=== PATIENT | male | born 1945 | race Hispanic/Latino ===

== ENCOUNTER 2017-03-26 11:42 | Inpatient (IN) | payer MEDICARE, OTHER ==
[~2017-03-26] VITALS: Ht 157.5 cm; Wt 66.5 kg
[~2017-03-26 11:42] MED LIST: AMLO10TA2 PO; ASPI-1005 PO; ATOR40TA71 PO; IBUP-2070 PO; INSNOV SQ; LEVO75TA4 PO; METF10004 PO; METO25TA6 PO
[2017-03-26 12:08] LABS: BASOPHILS % (AUTO) 0.2 % (0.0-5.0); EOSINOPHILS % (AUTO) 0.3 % (0.0-8.0); HEMATOCRIT 36.5 % (42-54); LYMPHOCYTES % (AUTO) 14.9 % (21.0-51.0); MEAN CORPUSCULAR HEMOGLOBIN 31.6 pg (27.0-33.0); MEAN CORPUSCULAR HGB CONC 35.7 g/dL (32.0-36.0); MEAN CORPUSCULAR VOLUME 88.5 fL (79-99); MONOCYTES % (AUTO) 1.1 % (3.0-13.0); NEUTROPHILS % (AUTO) 83.5 % (40.0-77.0); PLATELET COUNT (AUTO) 300 K/uL (130-400); RED BLOOD CELL COUNT(AUTO) 4.13 MIL/uL (4.50-6.20); RED CELL DISTRIBUTION WIDTH 13.3 % (11.0-15.5); WHITE BLOOD COUNT (AUTO) 3.9 K/uL (4.8-10.8)
[2017-03-26] MEDS ORDERED: ACETAMINOPHEN 325 MG TAB ONE (12:08)
[2017-03-26 12:20] LABS: CARBON DIOXIDE 28 mmol/L (21-32); CHLORIDE 95 mmol/L (101-111); CREATININE 1.1 mg/dL (0.5-1.5); GLOMERULAR FILTR. RATE CALC 70 mL/min (>60); GLUCOSE,RANDOM 107 mg/dL (70-105); POTASSIUM 3.4 mmol/L (3.5-5.1); SODIUM SERUM 135 mmol/L (136-145); UREA NITROGEN, BLOOD 17 mg/dL (7-18)
[2017-03-26 12:30] LABS: INR 0.98 (0.85-1.15); PARTIAL THROMBOPLASTIN TIME 28.2 SEC (26.3-35.5); PROTHROMBIN TIME 10.3 SEC (9.6-11.6)
[2017-03-26 12:30] LABS: APPEARANCE,URINE Cloudy (CLEAR); BILIRUBIN,URINE Negative (NEGATIVE); COLOR,URINE Yellow (YELLOW); GLUCOSE, URINE (UA) Negative (NEGATIVE); KETONES,URINE Trace mg/dL (NEGATIVE); LEUKOCYTE ESTERASE ,URINE Moderate (NEGATIVE); NITRATE,URINE Positive (NEGATIVE); OCCULT BLOOD,URINE Trace (NEGATIVE); PH,URINE 6.5 (5.0-8.0); PROTEIN,URINE POS 1+ (NEGATIVE)
[2017-03-26] MEDS ORDERED: SODIUM CHLORIDE 0.9% 1000ML 2,000 ML IV ONE (12:30)
[2017-03-26 12:35] LABS: ALANINE AMINOTRANSFERASE 25 U/L (12-78); ALBUMIN 3.3 g/dL (3.5-5.0); ASPARTATE AMINOTRANSFERASE 19 U/L (10-37); BILIRUBIN,TOTAL 0.4 mg/dL (0.2-1.0); CREATINE KINASE MB 0.5 ng/mL (0.5-3.6); CREATINE KINASE, TOTAL 72 U/L (21-232); MYOGLOBIN 42 ng/mL (10-92); TOTAL PROTEIN, SERUM 7.9 g/dL (6.0-8.3); TROPONIN I < 0.04 ng/mL (0.00-0.06)
[2017-03-26 12:37] LABS: BACTERIA,URINE Many /HPF (None Seen); RBC,URINE 0-1 /HPF (0-1)
[2017-03-26] MEDS ORDERED: CEFTRIAXONE SODIUM 1 GM ONE (13:01)
[2017-03-26] MEDS ORDERED: SODIUM CHLORIDE 0.9% 1000ML 1,000 ML IV ONE (16:14)
[2017-03-26 18:00] VITALS: BP 91/56
[2017-03-26 19:25] VITALS: BP 118/61
[2017-03-26] MEDS ORDERED: METF-527 PO (20:14)
[2017-03-26] MEDS ORDERED: AMLO10TA2 PO (20:14)
[2017-03-26] MEDS ORDERED: FERR325T22 PO (20:14)
[2017-03-26] MEDS ORDERED: DIPH25TA20 PO (20:14)
[2017-03-26] MEDS ORDERED: INSU100C6 SQ ×3 (20:14)
[2017-03-26] MEDS ORDERED: CHOL100018 PO (20:14)
[2017-03-26] MEDS ORDERED: DEXT-199 PO (20:14)
[2017-03-26] MEDS ORDERED: METO50TA18 PO (20:14)
[2017-03-26] MEDS ORDERED: ASPI-555 PO (20:14)
[2017-03-26] MEDS ORDERED: LEVO88TA7 PO (20:14)
[2017-03-26] MEDS ORDERED: VENL75TA63 PO (20:14)
[2017-03-26] MEDS ORDERED: INSLAN SQ ×2 (20:14)
[2017-03-26] MEDS ORDERED: CETI10TA57 PO (20:14)
[2017-03-26] MEDS ORDERED: ONDANSETRON HCL 4 MG/2 ML VIAL IVP PRN (21:00)
[2017-03-26] MEDS ORDERED: SODIUM CHLORIDE 0.9% 1000ML 1,000 ML IV SCH (21:00)
[2017-03-26] MEDS: SODIUM CHLORIDE 0.9% 1000ML 1,000 ML IV SCH (21:59)
[2017-03-26] MEDS ORDERED: POTASSIUM CHLORIDE 20MEQ/100ML 100 ML IV PRN (22:00)
[2017-03-26] MEDS ORDERED: LIDOCAINE HCL-MPF 1% 2ML VIAL IVP PRN (22:00)
[2017-03-26] MEDS ORDERED: POTASSIUM CHLORIDE 10% ELIXIR 20 MEQ/15 ML UDCUP PO PRN (22:00)
[2017-03-26] MEDS ORDERED: HYDRALAZINE HCL 20 MG/ML VIAL IV PRN (22:00)
[2017-03-26] MEDS ORDERED: POTASSIUM CHLORIDE 20 MEQ ERTAB PO PRN (22:00)
[2017-03-26 23:39] VITALS: BP 147/79
[2017-03-27] VITALS (7 sets, daily range): BP systolic 104–161; BP diastolic 56–70
[2017-03-27] MEDS ORDERED: ACETAMINOPHEN EXTRA STRENGTH 500 MG TABLET ONE (02:29)
[2017-03-27] MEDS: ACETAMINOPHEN EXTRA STRENGTH 500 MG TABLET PO PRN ×2 (02:32→12:07)
[2017-03-27 05:05] LABS: BASOPHILS % (AUTO) 0.3 % (0.0-5.0); HEMATOCRIT 29.6 % (42-54); LYMPHOCYTES % (AUTO) 7.4 % (21.0-51.0); MEAN CORPUSCULAR VOLUME 88.6 fL (79-99); MONOCYTES % (AUTO) 6.3 % (3.0-13.0); PLATELET COUNT (AUTO) 276 K/uL (130-400); RED BLOOD CELL COUNT(AUTO) 3.34 MIL/uL (4.50-6.20); RED CELL DISTRIBUTION WIDTH 13.3 % (11.0-15.5); WHITE BLOOD COUNT (AUTO) 13.8 K/uL (4.8-10.8)
[2017-03-27 05:13] LABS: CREATININE 1.1 mg/dL (0.5-1.5); POTASSIUM 3.6 mmol/L (3.5-5.1)
[2017-03-27] MEDS: INSULIN LISPRO 100 UNIT/ML 3ML SQ SCH ×4 (06:28→21:00)
[2017-03-27] MEDS ORDERED: DEXTROSE 4 GM TAB.CHEW PO PRN (08:15)
[2017-03-27] MEDS: AMLODIPINE BESYLATE 5 MG TAB PO SCH ×2 (08:38→12:07)
[2017-03-27] MEDS: VENLAFAXINE HCL 75 MG TAB PO SCH (09:00)
[2017-03-27] MEDS: ASPIRIN 81 MG EC TAB PO SCH (09:04)
[2017-03-27] MEDS: CEFTRIAXONE SODIUM 1 GM IVP SCH (09:04)
[2017-03-27] MEDS: FERROUS SULFATE 325 MG TABLET.DR PO SCH ×2 (09:05→18:33)
[2017-03-27] MEDS: FAMOTIDINE 20MG TAB 20 MG TAB PO SCH (09:05)
[2017-03-27] MEDS: METOPROLOL TARTRATE 50 MG TAB PO SCH (09:05)
[2017-03-27] MEDS: INSULIN HUMULIN R 100 UNIT/ML 3ML SQ SCH ×3 (12:00→23:59)
[2017-03-27] MEDS: SODIUM CHLORIDE 0.9% 1000ML 1,000 ML IV SCH ×2 (12:43→23:58)
[2017-03-27] MEDS ORDERED: CEFTRIAXONE SODIUM 1 GM IVP SCH (13:00)
[2017-03-27] MEDS: INSULIN GLARGINE 100 UNITS/ML 10 ML VIAL SQ SCH (23:53)
[2017-03-28] MEDS: FERROUS SULFATE 325 MG TABLET.DR PO SCH ×4 (00:01→21:05)
[2017-03-28] MEDS: FAMOTIDINE 20MG TAB 20 MG TAB PO SCH ×3 (00:01→21:05)
[2017-03-28] MEDS: CEFTRIAXONE SODIUM 1 GM IVP SCH ×3 (00:02→21:05)
[2017-03-28] MEDS: METOPROLOL TARTRATE 50 MG TAB PO SCH ×3 (00:08→21:05)
[2017-03-28 03:39] VITALS: BP 119/62
[2017-03-28] MEDS: INSULIN GLARGINE 100 UNITS/ML 10 ML VIAL SQ SCH ×2 (06:22→20:58)
[2017-03-28] MEDS: INSULIN HUMULIN R 100 UNIT/ML 3ML SQ SCH ×4 (06:22→21:00)
[2017-03-28] MEDS: INSULIN LISPRO 100 UNIT/ML 3ML SQ SCH ×4 (06:22→20:59)
[2017-03-28 08:00] VITALS: BP 138/69
[2017-03-28] MEDS: ASPIRIN 81 MG EC TAB PO SCH (09:54)
[2017-03-28] MEDS: AMLODIPINE BESYLATE 5 MG TAB PO SCH (09:54)
[2017-03-28] MEDS: LEVOTHYROXINE 100 MCG TABLET PO SCH (09:55)
[2017-03-28] MEDS: VENLAFAXINE HCL 75 MG TAB PO SCH (09:55)
[2017-03-28 11:00] VITALS: BP 138/80
[2017-03-28] MEDS ORDERED: INSULIN LISPRO 100 UNIT/ML 3ML SQ ONE (12:29)
[2017-03-28 16:00] VITALS: BP 123/54
[2017-03-28] MEDS: SODIUM CHLORIDE 0.9% 1000ML 1,000 ML IV SCH (17:21)
[2017-03-28 20:00] VITALS: BP 126/65
[2017-03-29] VITALS: BP 131/74
[2017-03-29 04:00] VITALS: BP 132/80
[2017-03-29] MEDS: INSULIN LISPRO 100 UNIT/ML 3ML SQ SCH ×2 (06:04→12:25)
[2017-03-29] MEDS: INSULIN HUMULIN R 100 UNIT/ML 3ML SQ SCH ×2 (06:05→12:17)
[2017-03-29] MEDS: LEVOTHYROXINE 100 MCG TABLET PO SCH (06:30)
[2017-03-29] MEDS: INSULIN GLARGINE 100 UNITS/ML 10 ML VIAL SQ SCH (06:52)
[2017-03-29 07:58] VITALS: BP 132/75
[2017-03-29] MEDS ORDERED: CEFD300C3 PO (08:10)
[2017-03-29] MEDS: AMLODIPINE BESYLATE 5 MG TAB PO SCH (08:46)
[2017-03-29] MEDS: ASPIRIN 81 MG EC TAB PO SCH (08:47)
[2017-03-29] MEDS: FERROUS SULFATE 325 MG TABLET.DR PO SCH (08:47)
[2017-03-29] MEDS: METOPROLOL TARTRATE 50 MG TAB PO SCH (08:47)
[2017-03-29] MEDS: FAMOTIDINE 20MG TAB 20 MG TAB PO SCH (08:47)
[2017-03-29] MEDS: VENLAFAXINE HCL 75 MG TAB PO SCH (08:47)
[2017-03-29] MEDS: CEFTRIAXONE SODIUM 1 GM IVP SCH (08:47)
[2017-03-29 11:51] VITALS: BP 131/68
== END 2017-03-29 13:15 | disposition home or self-care (01) | DRG 872 ==
LOC: EDH 11:42 → EDHIP 13:31 → OBSVTOIN 13:31 → 3BH 18:09
PROVIDERS: ADMIT Family Medicine; ATTEND Family Medicine
DX: A41.50 Gram-negative sepsis, unspecified (principal); E10.9 Type 1 diabetes mellitus without complications; N30.00 Acute cystitis without hematuria; E03.9 Hypothyroidism, unspecified; E87.6 Hypokalemia; Z79.4 Long term (current) use of insulin; I10 Essential (primary) hypertension; F32.9 Major depressive disorder, single episode, unspecified; Z86.73 Personal history of transient ischemic attack (TIA), and cerebral infarction without residual deficits
CPT/HCPCS: 36415; 71045; 80048; 80053; 81001; 82550; 82553; 82948; 83605; 83874; 84484; 85025; 85610; 85730; 87040; 87088; 87186; 87804; 92610; 93005; A4218; J0696; J1815; J2405; J7030

== ENCOUNTER 2018-03-24 18:11 | Emergency (ER) | payer OTHER ==
[~2018-03-24 18:11] MED LIST changes: -AMLO10TA2 PO; +AMLO10TA7 PO; -ASPI-1005 PO; +ASPI-555 PO; -ATOR40TA71 PO; +CEFD300C3 PO; +CETI10TA57 PO; +CHOL100018 PO; +DIPH25TA20 PO; +FERR325T22 PO; -IBUP-2070 PO; +INSLAN SQ; -INSNOV SQ; +INSU100C6 SQ; -LEVO75TA4 PO; +LEVO88TA7 PO; +METF-527 PO; -METF10004 PO; -METO25TA6 PO; +METO50TA18 PO; +VENL75TA63 PO; +[UNRECOGNIZED DRUG - CODE] PO
[2018-03-24 19:04] LABS: BASOPHILS % (AUTO) 0.1 % (0.0-5.0); HEMATOCRIT 36.2 % (42-54); LYMPHOCYTES % (AUTO) 8.8 % (21.0-51.0); MEAN CORPUSCULAR HEMOGLOBIN 32.5 pg (27.0-33.0); MEAN CORPUSCULAR HGB CONC 33.7 g/dL (32.0-36.0); MEAN CORPUSCULAR VOLUME 96.5 fL (79-99); MONOCYTES % (AUTO) 7.4 % (3.0-13.0); NEUTROPHILS % (AUTO) 83.7 % (40.0-77.0); PLATELET COUNT (AUTO) 290 K/uL (130-400); RED BLOOD CELL COUNT(AUTO) 3.75 MIL/uL (4.50-6.20); RED CELL DISTRIBUTION WIDTH 13.2 % (11.0-15.5); WHITE BLOOD COUNT (AUTO) 7.8 K/uL (4.8-10.8)
[2018-03-24 19:32] LABS: BILIRUBIN,TOTAL 0.6 mg/dL (0.2-1.0); CREATININE 1.5 mg/dL (0.5-1.5); POTASSIUM 4.6 mmol/L (3.5-5.1); TOTAL PROTEIN, SERUM 7.1 g/dL (6.0-8.3)
[2018-03-24 20:00] LABS: ABG OXYGEN SATURATION 88.1 % (95.0-99.0); BASE EXCESS,VENOUS BLOOD GAS -5.9 (-2.0-3.0); HCO3,VENOUS BLOOD GAS 18.5 (21.0-28.0); PCO2,VENOUS BLOOD GAS 34 (35-48); PH,VENOUS BLOOD GAS 7.359 (7.350-7.450)
[2018-03-24] MEDS ORDERED: SODIUM CHLORIDE 0.9% 1000ML 1,000 ML IV ONE (20:15)
[2018-03-24] MEDS ORDERED: INSULIN HUMULIN R 100 UNIT/ML 3ML ONE (20:16)
== END 2018-03-24 21:52 | disposition home or self-care (01) ==
LOC: EDH 18:11
DX: E11.65 Type 2 diabetes mellitus with hyperglycemia (principal); R11.10 Vomiting, unspecified; Z86.73 Personal history of transient ischemic attack (TIA), and cerebral infarction without residual deficits
CPT/HCPCS: 36415; 36600; 71045; 80053; 82550; 82803; 82948; 83690; 84484; 85025; 93005; 96361; 96374; 99284; J1815; J7030